=== PATIENT | male | born 1985 | race Caucasian/White ===

== ENCOUNTER 2016-12-16 12:52 | Emergency (ER) | payer BC ==
[~2016-12-16] VITALS: Ht 193 cm; Wt 125.0 kg
[~2016-12-16 12:52] MED LIST: HYDR-971 PO
[2016-12-16 12:55] VITALS: BP 149/75
--- NOTE | 2016-12-16 13:19 | RAD ---
Indication: Left ankle pain. Time of exam 1309 hours. 3 views of the left ankle were obtained. The alignment is normal. Ankle mortise is well maintained. The talar dome is smooth. No fracture, dislocation or ankle joint effusion is seen. There is a small plantar calcaneal spur. Impression: No acute abnormality is detected.
--- NOTE | 2016-12-16 13:44 | PHYS DOC ---
Past History Past Medical History: No Pertinent History, Depression Past Surgical History: No Surgical History Alcohol Use: None Drug Use: None Adult General Chief Complaint Chief Complaint: ANKLE PROBLEM HPI HPI 31-year-old gentleman presenting to the emergency department today after reportedly having a telephone pole roll on his left ankle. This occurred approximately 5 days ago and he has been walking on it without difficulty. Today he tripped down some stairs and injured his left ankle again and reports pain in his ankle. His pain is sharp mild nonradiating and without alleviating factors. He denies head trauma neck pain or any other injuries from his fall. Currently while at rest he has no pain. He denies chest pain shortness of breath abdominal pain nausea vomiting. He denies headache vision changes or weakness. All other review of systems is negative unless otherwise noted in history of present illness. Review of Systems Review of Systems SEE ABOVE. Allergies Allergies Allergies Coded Allergies Type Severity Reaction Last Updated Verified No Known Drug Allergies 10/21/15 No Physical Exam Physical Exam Constitutional: Well developed, well nourished, no acute distress, non-toxic appearance. HENT: Normocephalic, atraumatic, bilateral external ears normal, oropharynx moist, no oral exudates, nose normal. Eyes: PERRLA, EOMI, conjunctiva normal, no discharge. [] Neck: Normal range of motion, no tenderness, supple, no stridor. Nontender cervical thoracic and lumbar spine. No step-offs lacerations or abrasions present. Cardiovascular:Heart rate regular rhythm, no murmur [] Lungs & Thorax: Bilateral breath sounds clear to auscultation Abdomen: Bowel sounds normal, soft, no tenderness, no masses, no pulsatile masses. [] Skin: Warm, dry, no erythema, no rash. Back: No tenderness, no CVA tenderness. [] Extremities: The patient's left lower extremity is warm and well perfused with a palpable pulse. Normal neurovascular status. Grossly, the patient's left ankle is normal in appearance. No swelling or ecchymosis or lacerations present. Patient reports tenderness to the lateral malleolus. Otherwise stable ankle joint present. 2 second cap refill distally with normal neurovascular status. Knee and hip approximately a without pain with normal range of motion. Neurologic: Alert and oriented X 3, normal motor function, normal sensory function, no focal deficits noted. Psychologic: Affect normal, judgement normal, mood normal. [] EKG EKG [] Radiology/Procedures Radiology/Procedures [] Course & Med Decision Making Course & Med Decision Making Pertinent Labs and Imaging studies reviewed. (See chart for details) [] 31-year-old gentleman presenting to the emergency department with ankle pain. X-rays unremarkable. Physical examination was unremarkable. It was surprising that he stated that a telephone pole and rolled over his leg given that his objective physical examination was normal and he was not in any pain at this time. Otherwise secondary survey showed no acute traumatic injuries. The patient was in discharged home with an gabrielle bandage to follow-up with his PCP over the next 3-4 days if his symptoms did not improve. They were to return if their symptoms worsened or if they were concerned for any reason. Face-to- face discharge instructions and return precautions were given. Patient's questions were answered to their satisfaction. Patient is comfortable plan. Dragon Disclaimer Dragon Disclaimer This chart was dictated in whole or in part using Voice Recognition software in a busy, high-work load, and often noisy Emergency Department environment. It may contain unintended and wholly unrecognized errors or omissions. Departure Departure: Impression: Primary Impression: Left ankle pain Disposition: HOME, SELF-CARE Condition: STABLE Referrals: PCP,NO (PCP) JULIO C MELVIN MD Patient Instructions: Ankle Pain Additional Instructions: Thank you for allowing us to participate in your care today. Followup with your primary care physician in 3 days if your symptoms do not improve. If you do not have a primary care provider you can ask for a list of our primary care providers. Return to the emergency department you have any new or concerning findings. This should be evaluated by the primary care physician and any necessary consulting services for continued management within a few days after discharge. Return to emergency room if you have any new or concerning symptoms including but not limited to fever, chills, nausea, vomiting, intractable pain, any new rashes, chest pain, shortness of air, uncontrolled bleeding, difficulty breathing, and/or vision loss. JOSE MANUEL BENAVIDES MD December 16, 2016 13:44
== END 2016-12-16 13:58 | disposition home or self-care (01) ==
LOC: ER 12:52
DX: M25.572 Pain in left ankle and joints of left foot (principal); W18.49XA Other slipping, tripping and stumbling without falling, initial encounter; Y93.89 Activity, other specified; Y99.8 Other external cause status; Y92.89 Other specified places as the place of occurrence of the external cause
CPT/HCPCS: 73610; 99284

== ENCOUNTER 2017-05-29 13:15 | Emergency (ER) | payer BC, OTHER ==
[~2017-05-29] VITALS: Ht 193 cm; Wt 127.0 kg
[2017-05-29] MEDS ORDERED: MORPHINE SULFATE 4 MG/ML DISP.SYRIN. IV ONE (14:00)
[2017-05-29] MEDS ORDERED: ONDANSETRON PF 4 MG/2 ML VIAL. IV ONE (14:00)
[2017-05-29] MEDS ORDERED: IV NORMAL SALINE 1,000ML 1,000 ML IV ONE (14:00)
[2017-05-29] MEDS ORDERED: MORPHINE SULFATE 2 MG/ML DISP.SYRIN. IV PRN (14:00)
[2017-05-29 14:02] LABS: BASO % 1 % (0-3); EOS # 0.1 x10^3/uL (0.0-0.7); EOS % 2 % (0-3); HEMATOCRIT 44.3 % (39.0-53.0); HEMOGLOBIN 15.6 g/dL (13.0-17.5); LYMPH # 1.9 x10^3/uL (1.0-4.8); LYMPH % 31 % (24-48); MEAN CORPUSCULAR HEMOGLOBIN 30 pg (25-35); MEAN CORPUSCULAR HGB CONC 35 g/dL (31-37); MEAN CORPUSCULAR VOLUME 85 fL (79-100); MONO # 0.5 x10^3/uL (0.0-1.1); MONO % 9 % (0-9); NEUT # 3.4 x10^3uL (1.8-7.7); NEUT % 57 % (31-73); PLATELET COUNT 231 x10^3/uL (140-400); RED BLOOD COUNT 5.24 x10^6/uL (4.30-5.70); RED CELL DISTRIBUTION WIDTH 13.4 % (11.5-14.5)
[2017-05-29 14:15] LABS: ALBUMIN 4.1 g/dL (3.4-5.0); ALBUMIN/GLOBULIN RATIO 1.2 (1.0-1.7); CALCIUM 9.2 mg/dL (8.5-10.1); GFR 87.7; POTASSIUM 3.1 mmol/L (3.5-5.1); TOTAL BILIRUBIN 0.7 mg/dL (0.2-1.0); TOTAL PROTEIN 7.6 g/dL (6.4-8.2)
[2017-05-29] MEDS ORDERED: KETOROLAC 30 MG/ML VIAL. IV ONE (15:00)
--- NOTE | 2017-05-29 15:05 | RAD ---
CT of the abdomen and pelvis without contrast 05/29/2017 Indication: Right flank pain Comparison study: None Discussion: CT imaging of the abdomen and pelvis was obtained without the administration of IV contrast. Findings: The lung bases demonstrate no acute abnormality. There is a punctate 1 to 2 mm stone at the level of the right ureterovesicular junction, versus in the adjacent bladder. The bladder is relatively decompressed limiting evaluation minimal associated right-sided hydronephrosis hydroureter is noted. Mild periureteric stranding is seen. Left kidney is normal in appearance that evidence of obstructive uropathy or nephrolithiasis. The ureters are normal in course and caliber. Adrenal glands are within normal limits. Spleen is unremarkable. Punctate hypodensity seen in the dome of the liver, too small to characterize likely incidental. There is an area of low-attenuation along falciform ligament which has attenuation characteristics suggestive of focal fatty infiltration. Cyst is also possible, but less likely. The gallbladder is grossly normal in appearance. There is no bowel obstruction. No evidence of acute inflammatory change involving the bowel is identified. The appendix is unremarkable in appearance. No free fluid or free air seen in the abdomen or pelvis. No acute osseous abnormalities are identified. Impression: 1 to 2 mm stone at the level of the right ureterovesicular junction with very minimal right-sided hydronephrosis. PQRS Compliance Statement: One or more of the following individualized dose reduction techniques were utilized for this examination: 1. Automated exposure control 2. Adjustment of the mA and/or kV according to patient size 3. Use of iterative reconstruction technique
[2017-05-29 15:09] LABS: CLARITY,URINE CLEAR; COLOR,URINE AMBER
[2017-05-29 15:10] LABS: BACTERIA,URINE 0 /HPF (0-FEW); BILIRUBIN,URINE NEG (NEG); GLUCOSE,URINE NEG (NEG); NITRITE,URINE NEG (NEG); SQUAMOUS EPITHELIAL CELL,UR OCC /LPF; UROBILINOGEN,URINE 1 mg/dL (0.2 mg/dL)
[2017-05-29] MEDS ORDERED: TAMS0.4C97 PO ×2 (15:36→15:58)
[2017-05-29] MEDS ORDERED: HYDR-963 PO ×2 (15:36→15:58)
[2017-05-29] MEDS ORDERED: ONDA4TAB10 SL ×2 (15:36→15:58)
--- NOTE | 2017-05-29 15:37 | PHYS DOC ---
Past History Past Medical History: Depression Past Surgical History: No Surgical History Alcohol Use: None Drug Use: None Adult General Chief Complaint Chief Complaint: ABDOMINAL PAIN HPI HPI Patient is a 31 year old M who presents with sudden severe sharp intermittent onset right flank and abdominal pain. He feels that his pain is associated with nausea and sweating. He denies any symptoms prior to the onset of pain. He has no exacerbating or alleviating factors. Review of Systems Review of Systems Constitutional: Denies fever or chills [] Eyes: Denies change in visual acuity, redness, or eye pain [] HENT: Denies nasal congestion or sore throat [] Respiratory: Denies cough or shortness of breath [] Cardiovascular: No additional information not addressed in HPI [] GI: Negative except history of present illness : Denies dysuria or hematuria [] Musculoskeletal: Denies back pain or joint pain [] Integument: Denies rash or skin lesions [] Neurologic: Denies headache, focal weakness or sensory changes [] Endocrine: Denies polyuria or polydipsia [] Family History Family History Noncontributory Current Medications Current Medications Current Medications Medications (Trade) Dose Ordered Sig/Saeid Start Time Stop Time Status Last Admin Dose Admin Ketorolac Tromethamine (Toradol) 30 mg 1X ONCE 05/29/17 15:00 05/29/17 15:01 DC 05/29/17 14:57 30 MG Morphine Sulfate (Morphine 2mg Syringe) 2 mg PRN Q1HR PRN 05/29/17 14:00 05/29/17 14:43 2 MG Morphine Sulfate (Morphine 4mg Syringe) 4 mg 1X ONCE 05/29/17 14:00 05/29/17 14:01 DC 05/29/17 14:09 4 MG Ondansetron HCl (Zofran) 4 mg 1X ONCE 05/29/17 14:00 05/29/17 14:01 DC 05/29/17 14:07 4 MG Sodium Chloride 1,000 ml @ 1,000 mls/hr 1X ONCE 05/29/17 14:00 05/29/17 14:59 DC 05/29/17 14:06 1,000 MLS/HR Allergies Allergies Allergies Coded Allergies Type Severity Reaction Last Updated Verified No Known Drug Allergies 10/21/15 No Physical Exam Physical Exam Constitutional: Well developed, well nourished, non-toxic appearance. [] Moderate distress on initial evaluation HENT: Normocephalic, atraumatic, . [] Eyes: EOMI, conjunctiva normal, no discharge. [] Neck: Normal range of motion, no tenderness, supple, no stridor. [] Cardiovascular:Heart rate regular rhythm, no murmur [] Lungs & Thorax: Bilateral breath sounds clear to auscultation [] Abdomen: Bowel sounds normal, soft, no masses, no pulsatile masses. [] Right lower quadrant and right flank tenderness to palpation Skin: Warm, dry, no erythema, no rash. [] Back: No tenderness, no CVA tenderness. [] Extremities: No tenderness, no cyanosis, no clubbing, ROM intact, no edema. [] Neurologic: Alert and oriented X 3, normal motor function, normal sensory function, no focal deficits noted. [] Psychologic: Affect normal, judgement normal, mood normal. [] Current Patient Data Vital Signs Vital Signs Date Time Temp Pulse Resp B/P (MAP) Pulse Ox O2 Delivery O2 Flow Rate FiO2 05/29/17 15:21 50 16 173/93 (119) 99 Room Air 05/29/17 13:35 97.6 Lab Results Laboratory Tests Test 05/29/17 13:46 05/29/17 14:47 White Blood Count 6.0 x10^3/uL (4.0-11.0) Red Blood Count 5.24 x10^6/uL (4.30-5.70) Hemoglobin 15.6 g/dL (13.0-17.5) Hematocrit 44.3 % (39.0-53.0) Mean Corpuscular Volume 85 fL (79-100) Mean Corpuscular Hemoglobin 30 pg (25-35) Mean Corpuscular Hemoglobin Concent 35 g/dL (31-37) Red Cell Distribution Width 13.4 % (11.5-14.5) Platelet Count 231 x10^3/uL (140-400) Neutrophils (%) (Auto) 57 % (31-73) Lymphocytes (%) (Auto) 31 % (24-48) Monocytes (%) (Auto) 9 % (0-9) Eosinophils (%) (Auto) 2 % (0-3) Basophils (%) (Auto) 1 % (0-3) Neutrophils # (Auto) 3.4 x10^3uL (1.8-7.7) Lymphocytes # (Auto) 1.9 x10^3/uL (1.0-4.8) Monocytes # (Auto) 0.5 x10^3/uL (0.0-1.1) Eosinophils # (Auto) 0.1 x10^3/uL (0.0-0.7) Basophils # (Auto) 0.0 x10^3/uL (0.0-0.2) Sodium Level 138 mmol/L (136-145) Potassium Level 3.1 mmol/L (3.5-5.1) L Chloride Level 102 mmol/L (98-107) Carbon Dioxide Level 25 mmol/L (21-32) Anion Gap 11 (6-14) Blood Urea Nitrogen 14 mg/dL (8-26) Creatinine 1.0 mg/dL (0.7-1.3) Estimated GFR (Cockcroft-Gault) 87.7 BUN/Creatinine Ratio 14 (6-20) Glucose Level 135 mg/dL (70-99) H Lactic Acid Level 0.8 mmol/L (0.4-2.0) Calcium Level 9.2 mg/dL (8.5-10.1) Magnesium Level 2.0 mg/dL (1.8-2.4) Total Bilirubin 0.7 mg/dL (0.2-1.0) Aspartate Amino Transferase (AST) 24 U/L (15-37) Alanine Aminotransferase (ALT) 32 U/L (16-63) Alkaline Phosphatase 66 U/L (46-116) Total Protein 7.6 g/dL (6.4-8.2) Albumin 4.1 g/dL (3.4-5.0) Albumin/Globulin Ratio 1.2 (1.0-1.7) Urine Collection Type Unknown Urine Color [place] Urine Clarity Clear Urine pH 5.5 Urine Specific [place] >=1.030 Urine Protein Neg (NEG-TRACE) Urine Glucose (UA) Neg mg/dL (NEG) Urine Ketones (Stick) 80 mg/dL (NEG) Urine Blood Large (NEG) Urine Nitrite Neg (NEG) Urine Bilirubin Neg (NEG) Urine Urobilinogen Dipstick 1 mg/dL (0.2 mg/dL) Urine Leukocyte Esterase Neg (NEG) Urine RBC 3-5 /HPF (0-2) Urine WBC 1-4 /HPF (0-4) Urine Squamous Epithelial Cells Occ /LPF Urine Bacteria 0 /HPF (0-FEW) Urine Mucus Slight /LPF EKG EKG [] Radiology/Procedures Radiology/Procedures CT abdomen and pelvis without contrast Impressions: 1-2 mm right ureteral stone at the UVJ Course & Med Decision Making Course & Med Decision Making Pertinent Labs and Imaging studies reviewed. (See chart for details) Dragon Disclaimer Dragon Disclaimer This chart was dictated in whole or in part using Voice Recognition software in a busy, high-work load, and often noisy Emergency Department environment. It may contain unintended and wholly unrecognized errors or omissions. Departure Departure: Impression: Primary Impression: Right nephrolithiasis Disposition: HOME, SELF-CARE Condition: STABLE Referrals: YU ROMERO DO (PCP) Patient Instructions: Kidney Stones Additional Instructions: Yuri was seen in the emergency department for abdominal pain. No emergency medical condition was found on history or physical exam. He did have normal labs. A CT scan of his abdomen and pelvis showed a 1-2 mm kidney stone. He was given IV fluids and pain medication. His pain was controlled prior to discharge. Is given a prescription for Flomax to take once daily until he passes the stone. He was also given a prescription for pain medication and nausea medication to be used as needed. He is advised follow up with his primary care doctor as needed for further management. He was also advised to return to the emergency room if he develops new or worsening symptoms. Scripts Hydrocodone Bit/Acetaminophen (NORCO 10-325 TABLET) 1 Each Tablet 1 TAB PO TID for 3 Days, #9 TAB Prov: JULIO C TILLEY MD 05/29/17 Tamsulosin Hcl (FLOMAX) 0.4 Mg Cap.er.24h 1 CAP PO DAILY for 14 Days, #14 CAP 11 Refills Prov: JULIO C TILLEY MD 05/29/17 Ondansetron (ZOFRAN ODT) 4 Mg Tab.rapdis 15 TAB SL Q8HRS, #15 TAB Prov: JULIO C TILLEY MD 05/29/17 Ondansetron (ZOFRAN ODT) 4 Mg Tab.rapdis 15 TAB SL Q8HRS, #15 TAB Prov: JULIO C TILLEY MD 05/29/17 Hydrocodone Bit/Acetaminophen (NORCO 10-325 TABLET) 1 Each Tablet 1 TAB PO TID for 3 Days, #9 TAB Prov: JULIO C TILLEY MD 05/29/17 Tamsulosin Hcl (FLOMAX) 0.4 Mg Cap.er.24h 1 CAP PO DAILY for 14 Days, #14 CAP 11 Refills Prov: JULIO C TILLEY MD 05/29/17 JULIO C TILLEY MD May 29, 2017 15:37
[2017-05-29 16:00] VITALS: BP 144/94
[2017-05-29] MEDS ORDERED: TAMSULOSIN 0.4 MG CAP.ER.24H. PO ONE (16:10)
== END 2017-05-29 16:05 | disposition home or self-care (01) ==
LOC: ER 13:15
DX: N20.0 Calculus of kidney (principal); F32.9 Major depressive disorder, single episode, unspecified
CPT/HCPCS: 36415; 74176; 80053; 81001; 83605; 83735; 85025; 96361; 96374; 96375; 96376; 99285; J1885; J2270; J2405; J7030

== ENCOUNTER 2018-02-23 12:35 | Emergency (ER) | payer OTHER ==
[~2018-02-23] VITALS: Ht 193 cm; Wt 125.0 kg
[~2018-02-23 12:35] MED LIST changes: +HYDR-963 PO; +ONDA4TAB10 SL; +TAMS0.4C97 PO
[2018-02-23] MEDS ORDERED: IV NORMAL SALINE 1,000ML 1,000 ML IV ONE (13:45)
--- NOTE | 2018-02-23 13:45 | PHYS DOC ---
Past History Past Medical History: Depression Past Surgical History: No Surgical History Alcohol Use: None Drug Use: None Adult General Chief Complaint Chief Complaint: NAUSEA/VOMITING/DIARRHEA HPI HPI Patient is a pleasant 32-year-old male who presents for evaluation of nausea and vomiting over the last 6 weeks or so. He states that normally he gets nauseated and has some dry heaving but does not actually vomit. He states that over the last 3 days or so he has been vomiting and also having some diarrhea. He does admit to smoking marijuana occasionally. He states he has never had similar symptoms previously. He did start a new job and december and mentions that he is been losing weight over the last 6 weeks or so. He is alert and oriented 4, calm, and appears to be in no distress at this time. He denies rectal bleeding, hematemesis, chest pain, shortness of breath, back or flank pain, urinary symptoms, dizziness or syncope. Review of Systems Review of Systems Constitutional: Denies fever or chills [] +weight loss Eyes: Denies change in visual acuity, redness, or eye pain [] HENT: Denies nasal congestion or sore throat [] Respiratory: Denies cough or shortness of breath [] Cardiovascular: No additional information not addressed in HPI [] GI: bloody stools or diarrhea [] mild generalized abd pain, +n/v : Denies dysuria or hematuria [] Musculoskeletal: Denies back pain or joint pain [] Integument: Denies rash or skin lesions [] Neurologic: Denies headache, focal weakness or sensory changes [] Endocrine: Denies polyuria or polydipsia [] All other systems were reviewed and found to be within normal limits, except as documented in this note. Allergies Allergies Allergies Coded Allergies Type Severity Reaction Last Updated Verified No Known Drug Allergies 10/21/15 No Physical Exam Physical Exam Constitutional: Well developed, well nourished, no acute distress, non-toxic appearance. [] has can of soda in room which he is drinking HENT: Normocephalic, atraumatic, bilateral external ears normal, oropharynx moist, no oral exudates, nose normal. [] Eyes: PERRLA, EOMI, conjunctiva normal, no discharge. [] Neck: Normal range of motion, no tenderness, supple, no stridor. [] Cardiovascular:Heart rate regular rhythm, no murmur [] Lungs & Thorax: Bilateral breath sounds clear to auscultation [] Abdomen: Bowel sounds normal, soft, no tenderness, no masses, no pulsatile masses. [] no focal abd tenderness, no distension, no guarding, no rigidity, soft Skin: Warm, dry, no erythema, no rash. [] Back: No tenderness, no CVA tenderness. [] Extremities: No tenderness, no cyanosis, no clubbing, ROM intact, no edema. [] Neurologic: Alert and oriented X 3, normal motor function, normal sensory function, no focal deficits noted. [] Psychologic: Affect normal, judgement normal, mood normal. [] EKG EKG [] Radiology/Procedures Radiology/Procedures [] Course & Med Decision Making Course & Med Decision Making Pertinent Labs and Imaging studies reviewed. (See chart for details) @1540 - Workup today fails to reveal any emergent pathology. I updated the patient and his and his lab results. The patient is drinking soda in the room is having no difficulty keeping that down. Advised that the patient drink more water while he is working as he sometimes works in a hot environment. Advised patient to follow up with his PCP in the next 1-2 days and to return to the emergency department for new or worsening symptoms. He will go home with a prescription for Zofran and a work excuse. Harryon Disclaimer Pretty Disclaimer This electronic medical record was generated, in whole or in part, using a voice recognition dictation system. Departure Departure: Impression: Primary Impression: Nausea & vomiting Disposition: 01 HOME, SELF-CARE Condition: STABLE Referrals: PCP,SANTIAGO (PCP) Patient Instructions: Cyclic Vomiting Syndrome, Nausea and Vomiting Additional Instructions: Take the medication as prescribed. Follow-up with your doctor in the next 1-2 days. Return to the ER immediately for new or worsening symptoms. Scripts Ondansetron (ZOFRAN ODT) 4 Mg Tab.rapdis 1 TAB SL Q6HRS for nausea, #20 TAB Prov: ARON VICKERS DO 02/23/18 ARON VICKERS DO Feb 23, 2018 13:45
[2018-02-23] MEDS ORDERED: ONDANSETRON PF 4 MG/2 ML VIAL. IV ONE (14:00)
[2018-02-23 14:08] LABS: BASO # 0.1 x10^3/uL (0.0-0.2); BASO % 1 % (0-3); EOS # 0.2 x10^3/uL (0.0-0.7); EOS % 3 % (0-3); HEMATOCRIT 41.7 % (39.0-53.0); HEMOGLOBIN 14.8 g/dL (13.0-17.5); LYMPH # 1.9 x10^3/uL (1.0-4.8); LYMPH % 33 % (24-48); MEAN CORPUSCULAR HEMOGLOBIN 30 pg (25-35); MEAN CORPUSCULAR HGB CONC 36 g/dL (31-37); MEAN CORPUSCULAR VOLUME 84 fL (79-100); MONO # 0.4 x10^3/uL (0.0-1.1); MONO % 7 % (0-9); NEUT # 3.3 x10^3uL (1.8-7.7); NEUT % 57 % (31-73); PLATELET COUNT 187 x10^3/uL (140-400); RED BLOOD COUNT 4.96 x10^6/uL (4.30-5.70); RED CELL DISTRIBUTION WIDTH 13.1 % (11.5-14.5); WHITE BLOOD COUNT 5.9 x10^3/uL (4.0-11.0)
[2018-02-23 14:21] LABS: ALBUMIN 3.2 g/dL (3.4-5.0); ALBUMIN/GLOBULIN RATIO 1.1 (1.0-1.7); CALCIUM 8.5 mg/dL (8.5-10.1); CREATININE 0.8 mg/dL (0.7-1.3); GFR 112.8; MAGNESIUM 1.8 mg/dL (1.8-2.4); POTASSIUM 3.7 mmol/L (3.5-5.1); TOTAL BILIRUBIN 0.3 mg/dL (0.2-1.0); TOTAL PROTEIN 6.2 g/dL (6.4-8.2)
[2018-02-23] MEDS ORDERED: ONDA4TAB10 SL (15:51)
[2018-02-23 15:59] VITALS: BP 138/80
== END 2018-02-23 15:59 | disposition home or self-care (01) ==
LOC: ER 12:35
DX: R11.2 Nausea with vomiting, unspecified (principal); R19.7 Diarrhea, unspecified; R10.84 Generalized abdominal pain
CPT/HCPCS: 36415; 80053; 83735; 85025; 96361; 96374; 99284; J2405; J7030